=== PATIENT | female | born 1970 | race Caucasian/White ===

== ENCOUNTER 2024-01-27 11:15 | Emergency (ER) | payer BC, SELFPAY ==
[2024-01-27 11:16] VITALS: BP 121/67; PULSE 77; RESP 16; TEMP 36.4; O2SAT 100; BMI 39.6
--- NOTE | 2024-01-27 11:32 | W.ED.BACK ---
HPI - Back Pain/Injury General: Chief Complaint: Back Pain/Injury Stated Complaint: lower back pain Time Seen by Provider: 01/27/24 11:16 History of Present Illness: 53-year-old female presents emergency room via EMS complaining of severe back pain with right leg radiculopathy. Patient has had problems in the past she is visiting in this area is from [facility]. She has been seen in the past MRIs done there had been a recommendation to consider surgery but she has been putting it off. She is usually very careful to avoid stressing her back. Today she bent over is a severe pain in her back radiating to her right leg and a little bit to the back of her left leg. No fecal incontinence. She was given 200 mcg of fentanyl and 10 mg of Toradol IV and route had moderate relief of pain. No trauma no red flag symptoms or history. Associated symptoms: Deny abdominal pain, chills, dysuria, fever(s) or urinary urgency Review of Systems Const: Denies: fever(s) or chills Card: Denies: chest pain Resp: Denies: dyspnea GI: Denies: abdominal pain : Denies: dysuria, urinary frequency or urinary urgency Musc: Reports: back pain; Denies: neck pain Skin/Breast: Denies: rash PFSH ED PFSH: Medical History (Updated 01/27/24 @ 15:01 by Kedar Espinoza DO) Chronic back pain Physical Exam Const: COMMON NORMALS: no acute distress GENERAL APPEARANCE: cooperative and comfortable ORIENTATION/CONSCIOUSNESS: Yes awake, Yes oriented to person, Yes oriented to place and Yes oriented to time HENMT: COMMON NORMALS: normocephalic, atraumatic and hearing grossly normal bilaterally HEAD & SCALP: normocephalic and atraumatic Resp: COMMON NORMALS: normal respiratory effort, No retractions, No use of accessory muscles and clear to auscultation bilaterally AUSCULTATION: clear to auscultation bilaterally Cardio: COMMON NORMALS: regular rate, regular rhythm and No murmurs present (Cardio) RATE: regular rate RHYTHM: regular rhythm GI: COMMON NORMALS: Soft to palpation and No hepatosplenomegaly present AUSCULTATION: Yes normoactive bowel sounds PALPATION: Yes Soft to palpation, No Tenderness to palpation present (GI), No Guarding due to palpation present (GI) and Yes No hepatosplenomegaly present Extremity: COMMON NORMALS: normal to inspection, capillary refill normal, no clubbing, cyanosis or edema, no calf tenderness and no pedal edema Neuro: SENSORIUM/ORIENTATION: Yes oriented to person, Yes oriented to place and Yes oriented to time Skin: COMMON NORMALS: no rashes or lesions noted GENERAL SKIN EXAM: no rashes or lesions noted Course Vital Signs: Vital signs: Vital Signs Temperature 97.6 F 01/27/24 11:16 Pulse Rate 92 01/27/24 14:55 Respiratory Rate 18 01/27/24 13:30 Blood Pressure 132/81 01/27/24 14:55 Pulse Oximetry 94 01/27/24 14:55 Oxygen Delivery Me thod Room Air 01/27/24 13:30 MDM - Back Pain/Injury Medical Decision Making No red flag symptoms. No trauma that precipitated this she reports chronic back pain for which she has been advised in the past to have surgery. Improved some with medications given she was able to ambulate to the bathroom. Will discharge patient home on a steroid taper tizanidine and diclofenac to use as needed encouraged her to follow-up with her primary care doctor as soon as she is able to reevaluate long-term management options for her chronic back pain No radiology studies performed this visit Discharge Plan Discharge Patient Disposition: Home Clinical Impression: Lumbar radiculopathy Condition: Stable Prescriptions: New tizanidine 4 mg tablet 4 mg PO Q6H PRN (Reason: muscle spasticity) Qty: 20 0RF Rx Instructions: do not exceed 3 doses per 24 hrs prednisone 20 mg tablet 20 mg PO TID Qty: 15 0RF Rx Instructions: 1 p.o. 3 times daily x3 days, 1 p.o. twice daily x2 days, 1 p.o. daily x2 days diclofenac sodium 75 mg tablet,delayed release (DR/EC) 75 mg PO Q12H PRN (Reason: pain) Qty: 20 0RF No Action losartan 25 mg tablet 12.5 mg PO DAILY escitalopram oxalate 20 mg tablet 20 mg PO DAILY cholecalciferol (vitamin D3) 1,250 mcg (50,000 unit) capsule 1,250 mcg PO Q7D Discharge Orders: Discharge ED (Routine); Ordered 01/27/24 Ordered By: Kedar Espinoza Discharge Diet: Usual diet Discharge Activity: Limit activity as instructed Patient Instructions: Acute Low Back Pain (ED), Lower Back Exercises (ED), Opioid Safety, Pain Management Activity Restrictions/Additional Instructions: Thank you for choosing [facility] for your healthcare needs today. It is very important that you follow up as instructed or that you return to the Emergency Department should you have concerns or if your condition changes or worsens in any way. Follow-up with your primary care doctor as soon as you are able Coding Level of Care Code ED Media Reporter for Cecile Rocha
[2024-01-27] MEDS: orphenadrine 30 mg/mL Inj 2 mL 60 MG IM (11:36)
[2024-01-27] MEDS: morphine 4 mg/mL SDV 1 mL IVP (11:36)
[2024-01-27] MEDS: dexamethasone 10 mg/mL INJ IM (11:36)
[2024-01-27] MEDS: ketorolac 30 mg/mL INJ 20 MG IVP (11:36)
[2024-01-27 12:17] VITALS: BP 121/67; PULSE 69; RESP 16; O2SAT 97
[2024-01-27 13:15] VITALS: BP 184/89; PULSE 96; O2SAT 95
[2024-01-27] MEDS: morphine 4 mg/mL SDV 1 mL 2 MG IVP (13:29)
[2024-01-27 13:30] VITALS: BP 132/71; PULSE 81; RESP 18; O2SAT 95
[2024-01-27 14:55] VITALS: BP 132/81; PULSE 92; O2SAT 94
== END 2024-01-27 14:56 | disposition home or self-care (01) ==
PROVIDERS: Emergency Provider Family Medicine
DX: M54.16 Radiculopathy, lumbar region (principal)
CPT/HCPCS: 96372; 96374; 96375; 96376; 99284; J1100; J1885; J2270; J2360